=== PATIENT | male | born 1970 | race Caucasian/White ===

== ENCOUNTER 2020-10-20 20:04 | Inpatient (IN) | payer OTHER ==
[~2020-10-20] VITALS: Ht 172.7 cm; Wt 110.2 kg
[~2020-10-20 20:04] MED LIST: CLEOCIN HCL300 MG; NOHOMEMEDICATIONS; NORCO 5-325 TA1 EACH PO; PENICILLIN VK500 M1 PO; PENICILLIN VK500 MG PO; VICODIN 5-5001 EACH PO
[2020-10-20 20:18] VITALS: BP 114/75
[2020-10-20 20:46] LABS: ABSOLUTE NEUTROPHILS 2.8 thou/uL (1.4-8.2); BASOPHILS 1.3 % (0.0-2.0); EOSINOPHILS 0.1 % (0.0-3.0); HEMATOCRIT 44.7 % (42.0-52.0); HEMOGLOBIN 15.2 gm/dL (14.0-18.0); LYMPHOCYTES 26.5 % (24.0-44.0); MCH 30.9 pg (26.0-34.0); MCHC 34.1 g/dL (28.0-37.0); MCV 90.5 fL (80.0-100.0); PLATELET COUNT 149 thou/uL (150-400); POLYS 62.1 % (36.0-66.0); RBC 4.94 mil/uL (4.50-6.00); RDW 13.8 % (10.5-14.5); WBC 4.4 thou/uL (4.0-11.0)
[2020-10-20 21:00] LABS: URINE BILIRUBIN NEGATIVE (Negative); URINE BLOOD TRACE (Negative); URINE CLARITY CLEAR; URINE COLOR YELLOW; URINE GLUCOSE-RANDOM* NEGATIVE (Negative); URINE KETONES NEGATIVE (Negative); URINE LEUKOCYTES-REFLEX NEGATIVE (Negative); URINE NITRITE-REFLEX NEGATIVE (Negative); URINE PROTEIN (DIPSTICK) NEGATIVE (Negative); URINE UROBILINOGEN 0.2 E.U./dl (0.2-1.0)
[2020-10-20 21:06] LABS: CALCIUM 7.9 mg/dL (8.5-10.1); CREATININE 1.3 mg/dL (0.7-1.3); POTASSIUM 3.8 mmol/L (3.5-5.1)
[2020-10-20 21:12] LABS: ALBUMIN 2.9 g/dL (3.4-5.0); TOTAL BILIRUBIN 0.2 mg/dL (0.2-1.0); TOTAL PROTEIN 6.7 g/dL (6.4-8.2)
--- NOTE | 2020-10-21 00:24 | NUR ---
[id number] HAS HIS MEDS IN HER CAR. HAS NOT BEEN COMPLIANT WITH MEDS BUT LATELY HAS NOT EVEN HAD ACCESS TO MEDS. SHE WILL CALL HOSPITAL WITH LIST WHEN ABLE.
[2020-10-21] MEDS ORDERED: METFORMIN HCL500 MG PO (01:02)
[2020-10-21 04:36] VITALS: BP 137/83
[2020-10-21 05:10] VITALS: BP 145/92
--- NOTE | 2020-10-21 05:50 | NUR ---
2 LITERS N/C 100 % O2 SAT. HE IS WITHDRAWN AND DROWSY. MORE CONCENTRATED ON GETTING COMFORTABLE. HE IS NEEDING REMINDING TO BE GENTLE WITH IV SITES TO GET MEDICATIONS. ORIENTED TO ROOM AND SURROUNDINGS. HE IS COOPERATIVE BUT NEEDS SOME HELP WITH CLEAR REMINDERS. CAREPLAN STARTED.
[2020-10-21 07:51] VITALS: BP 137/67
--- NOTE | 2020-10-21 11:48 | HC ---
[facility] [place] [address] CONSULTATION Name: NAHOMY RAMIREZ Room #: 354-[facility] IN M.R.#: [id number] Admission: 10/20/20 Attend Phys: Ruel Neri Discharge: Date of : 74 Report #: [id number] THIS REPORT FOR: cc: BRANDO - No family physician/PCP BRANDO - No family physician/PCP Shaji Morales MD ~ DATE OF SERVICE: 10/21/2020 INFECTIOUS DISEASE CONSULTATION ATTENDING PHYSICIAN: Dr. Neri. REASON FOR EVALUATION: COVID-19 infection, complicated by pneumonitis and respiratory failure. HISTORY OF PRESENT ILLNESS: Chart reviewed. The patient examined. This 50-year-old gentleman with known history of diabetes mellitus, has not been well controlled. Also, has asthma, who has been ill for at least 2-3 days prior, he developed onset of fever with associated chills, profound weakness, maintained an adequate appetite. He is not clear, he had significant dyspnea subjectively, although he had cough, was evaluated and was confirmed to have a positive COVID test with a chest x-ray evidence of bilateral changes, more notable on the randal-right hilar area. Influenza antigen was negative. Lactic acid 1.3. Procalcitonin of 0.15. Blood cultures are sterile thus far. He is empirically started on dexamethasone, remdesivir, azithromycin, ceftriaxone. ALLERGIES: None known. CURRENT MEDICATIONS: As noted above. In addition, had enoxaparin, famotidine, zinc, cholecalciferol, ascorbic acid, dexamethasone, guaifenesin, lisinopril, albuterol, insulin. PAST MEDICAL HISTORY: As described above, diabetes mellitus type 2, history of asthma, history of migraines. SOCIAL HISTORY: No smoke cigarettes. No ethanol, no illicit drug use. FAMILY HISTORY: Noncontributory. REVIEW OF SYSTEMS: Otherwise, unremarkable with the exception of the above. PHYSICAL EXAMINATION: GENERAL: He appears ill, not overtly toxic. He is generally lucid, mild to moderate distress, lying in a left lateral decubitus position. VITAL SIGNS: Temperature 99.5, had a T-max 103, pulse 82, respirations 18, blood pressure 137/67. [facility] [address] [place] [address] CONSULTATION Name: ASHLEYCOREA D Room #: 354-[facility].#: [id number] Admission: 10/20/20 Attend Phys: Ruel Neri Discharge: Date of : 74 Report #: [id number] SKIN: Warm, dry, no rashes. HEENT: Normocephalic. Extraocular muscles intact. Nasal cannula in place at 2 liters. NECK: Supple. LUNGS: Few scattered coarse breath sounds. HEART: Regular. I do not appreciate a murmur. ABDOMEN: Distended, firm, nontender. No peritoneal signs. GENITOURINARY AND RECTAL: Deferred. LABORATORY DATA: Electrolytes: Sodium 131, potassium 3.8, chloride 98, bicarbonate is 26, anion gap of 7, BUN and creatinine 13 and 1.3, glucose 159, AST of 65, ALT of 56. Albumin 2.9, total protein 6.7, estimated GFR 59. CBC: White count of 4.4, H and H 15.2 and 44.7, platelets of 149. Urinalysis unremarkable. Influenza antigen was negative. ASSESSMENT AND PLAN: COVID-19 infection, complicated by pneumonitis and respiratory failure in the setting of likely not well controlled diabetes. Also, has underlying asthma and a smoker. We will continue empiric therapy with antibacterials, would concern about a possible secondary bacterial pneumonitis given somewhat focal nature of the chest x-ray findings, attempt to obtain a sputum culture. Check MRSA, pneumococcal. In addition, I will start baricitinib as well in conjunction with the emergency room corticosteroids. <ELECTRONICALLY SIGNED> By: Shaji Morales MD 10/21/20 [id number] [id number] Shaji Morales MD /nt
[2020-10-21 14:24] LABS: HEMATOCRIT 48.3 % (42.0-52.0); HEMOGLOBIN 16.3 gm/dL (14.0-18.0); MCH 30.5 pg (26.0-34.0); MCHC 33.7 g/dL (28.0-37.0); MCV 90.4 fL (80.0-100.0); RBC 5.34 mil/uL (4.50-6.00); RDW 13.8 % (10.5-14.5)
[2020-10-21 14:44] LABS: ALBUMIN 2.8 g/dL (3.4-5.0); CALCIUM 8.2 mg/dL (8.5-10.1); CREATININE 0.9 mg/dL (0.7-1.3); POTASSIUM 4.3 mmol/L (3.5-5.1); TOTAL BILIRUBIN 0.1 mg/dL (0.2-1.0); TOTAL PROTEIN 6.9 g/dL (6.4-8.2)
--- NOTE | 2020-10-21 14:59 | NUR ---
CARE ASSUME THIS AM, PT ALERT AND ORIENTED X4, SLEEPY BUT AROUSABLE WHEN NEEDED. DENIES PAIN, NAUSEA AND VOMITTING. ON 2L OF OXYGEN TRUDY, SOB WITH EXERTION. USES URINAL. ENHANCED PRECAUTIONS IN PLACE. PT FAMILY CALLED AND UPDATED ABOUT ABT PT POC. DENIES ANY NEEDS TRUDY, WILL CONTINUE TO MONITOR
[2020-10-21 16:53] VITALS: BP 128/76
[2020-10-21 19:13] VITALS: BP 136/85
[2020-10-22 00:06] LABS: GLYCOHEMOGLOBIN (HGB A1C) 8.5 % (4.8-5.6)
[2020-10-22 03:18] VITALS: BP 110/74
[2020-10-22 03:55] LABS: ALBUMIN 2.8 g/dL (3.4-5.0); ANION GAP 12 mmol/L (7-16); BUN 13 mg/dL (7-18); CALCIUM 8.2 mg/dL (8.5-10.1); CHLORIDE 106 mmol/L (98-107); CO2 22 mmol/L (21-32); CREATININE 0.8 mg/dL (0.7-1.3); DIRECT BILIRUBIN < 0.1 mg/dL (<0.1-0.2); GLUCOSE 130 mg/dL (74-106); PHOSPHORUS 3.9 mg/dL (2.5-4.9); POTASSIUM 4.6 mmol/L (3.5-5.1); SGOT 55 U/L (15-37); SGPT 57 U/L (30-65); SODIUM 140 mmol/L (136-145); TOTAL BILIRUBIN 0.2 mg/dL (0.2-1.0); TOTAL PROTEIN 6.4 g/dL (6.4-8.2)
--- NOTE | 2020-10-22 05:04 | NUR ---
PT MAKING PROGRESS TOWARD GOALS. ON O2 AT 2L PER NC, REPORTEDLY DOWN FROM 4L PER RN REPORT. LUNGS CTA. NOTED DRY OCCASIONAL COUGH.
[2020-10-22 07:40] VITALS: BP 135/96
--- NOTE | 2020-10-22 08:04 | EKG ---
[address] [place] [address] ELECTROCARDIOGRAM REPORT Name: NAHOMY RAMIREZ Room #: 354-P ADM IN .R.#: [id number] Admission: 10/20/20 Attend Phys: Aneesh Marte MD Discharge: Date of : 74 Report #: [id number] [facility] ED Test Date: 2020-10-20 Test Time: 21:29:47 Pat Name: NAHOMY RAMIREZ Department: Room: [facility] Gender: M Branch Examiner: unknown : 1970 Requested By: Han Almeida Order Number: [id number] MD: Robert Palomares Measurements Intervals [place] Rate: 95 P: -3 CA: 166 QRS: -13 QRSD: 68 T: 69 QT: 300 QTc: 377 Interpretive Statements Sinus rhythm Baseline wander in lead(s) II,aVR,aVF No previous ECG available for comparison Electronically Signed On 10-22-2020 8:04:46 CDT by Robert Palomares [email or web address] <ELECTRONICALLY SIGNED> By: Robert Palomares MD, [facility] 10/22/20 [phone] Robert Palomares MD, FACC /EPI
[2020-10-22 11:53] VITALS: BP 127/82
--- NOTE | 2020-10-22 12:01 | NUR ---
INITIAL ASSESSMENT: DARIEL reviewed chart and spoke with nursing and attending physician. Pt was admitted from home due to COVID. Pt placed in Enhanced Isolation. Pt has not received a COVID vaccination. Pt is afebrile and on 2L of O2. Pt is on IV steroids and Remdesivir. DARIEL spoke with pt via phone. Introduced role of SW. Pt is alert/orientated x 4. Pt reports he lives at home with family. Prior to admission, pt was independent with ADLs. No use of DME. Pt does have an inhaler to use due to hx of asthma. No hx of HH services or post-acute placement. Pt does not currently have a PCP. Pt confirms that he does not currently have health insurance. SW explained that [employer] will be contacting him to assist with Medicaid application if pt qualifies. [facility] business office will be able to provide pt with financial assistance ppwk if needed. Plan is for pt to discharge home when medically stable. DARIEL is following to assist as needed with discharge planning.
--- NOTE | 2020-10-22 12:11 | NUR ---
pt up in the chair, took a shower earlier today. alert and oriented x4. continue to be on 2l of oxygen, sob with exertion and dyspneic. table and belongings teresita by. denies any needs sarah, willc ontinue to monitor
[2020-10-22] MEDS ORDERED: TYLENOL EXTRA500 MG PO (15:30)
[2020-10-22] MEDS ORDERED: ACEROLA C500 MG PO (15:30)
[2020-10-22] MEDS ORDERED: VITAMIN D325 MC2 PO (15:30)
[2020-10-22] MEDS ORDERED: MUCINEX600 MG PO (15:30)
[2020-10-22] MEDS ORDERED: PREDNISONE 20 M20 M1 PO (15:30)
[2020-10-22] MEDS ORDERED: ZINC SULFATE50 MG PO (15:30)
[2020-10-22] MEDS ORDERED: VENTOLIN HFA INH8 GM INH (15:30)
[2020-10-22] MEDS ORDERED: LEVOFLOXACIN500 MG PO (15:30)
[2020-10-22 15:46] VITALS: BP 107/88
[2020-10-22 16:03] VITALS: BP 107/88
--- NOTE | 2020-10-22 16:05 | NUR ---
DISCHARGE NOTE: DARIEL notified by nursing that attending physician will discharge pt today. SW requested rest/exercise oximetry to be ordered to determine home O2 needs. SW spoke with pt via phone who states he feels ready to discharge home and his family will be able to provide transportation home. SW explained possible need for home O2. Pt verbalized understanding. DARIEL confirmed pt's home address and phone number. HH orders written. DARIEL discussed with pt. Pt declinees HH at this time. DARIEL faxed home O2 referral to [facility]. Notified [facility] liaison, who delivered portable O2 tank to the hospital. DARIEL faxed face sheet to [facility] and spoke with Carlie. Case Mgmt Dept to vouch for meds. DARIEL notified Director of Case Mgmt. Pharmacy to call [facility] when meds are ready to be picked up. Rest/exercise oximetry and script will need to be faxed to [facility] when available. Contact info for [facility] placed in pt's discharge summary. No additional SW needs identified at this time, but is available to assist should needs arise.
[2020-10-22 17:57] VITALS: BP 107/88
--- NOTE | 2020-10-22 18:54 | NUR ---
D/C ORDERS IN. IV AND TELE D/C. PER RT PT DOESNT NEED HOME O2. HOME MEDS GIVEN TO PT QAND EDUCATED ON HOW TO TAKE THEM. D/C INSTRUCTION AND NEW MED GIVEN TO PT. SW RESOURCES GIVEN WELL. ALL BELONGINGS WITH PT. DENIES ANY QUESTIONS WAUITING ON PT RIDE TO GET HERE
--- NOTE | 2020-10-23 08:13 | NUR ---
SW received voice message from Danielle at [facility] stating total for meds is $137.33. Nursing picked up meds. Pt did not qualify for home O2. SW notified [facility] liaison, who will curing pickling packer portable tank. No additional SW needs identified at this time, but is available to assist should needs arise.
== END 2020-10-22 19:17 | disposition home or self-care (01) | DRG 177 ==
LOC: ER 20:04 → EROBS 22:52 → 3W 22:52
PROVIDERS: Nurse Practitioner; Nurse Practitioner Family; ADMIT Internal Medicine; ATTEND Internal Medicine
PROC: XW033E5 Introduction of Remdesivir Anti-infective into Peripheral Vein, Percutaneous Approach, New Technology Group 5 (ICD-10-PCS; principal; 2020-10-21)
DX: U07.1 COVID-19 (principal); J12.82 Pneumonia due to coronavirus disease 2019; J96.01 Acute respiratory failure with hypoxia; J15.9 Unspecified bacterial pneumonia; J45.901 Unspecified asthma with (acute) exacerbation; E11.9 Type 2 diabetes mellitus without complications; G43.909 Migraine, unspecified, not intractable, without status migrainosus; F17.210 Nicotine dependence, cigarettes, uncomplicated; Z79.899 Other long term (current) drug therapy
CPT/HCPCS: 10879